=== PATIENT | female | born 1985 ===

== ENCOUNTER 2024-02-06 14:37 | Emergency (ER) | payer SELFPAY ==
[2024-02-06 16:46] LABS: APPEARANCE,URINE CLEAR (CLEAR); BILIRUBIN,URINE NEGATIVE (NEGATIVE); COLOR,URINE LIGHT YELLOW (YELLOW); GLUCOSE,URINE 100 (NEGATIVE); KETONES,URINE NEGATIVE (NEGATIVE); LEUKOCYTE ESTERASE,URINE TRACE (NEGATIVE); NITRITE,URINE NEGATIVE (NEGATIVE); OCCULT BLOOD,URINE MODERATE (NEGATIVE); PH,URINE 7.5 (5.0-9.0); PROTEIN,URINE >=300 (NEGATIVE); UROBILINOGEN,URINE 0.2 mg/dL (0.2-1.0)
[2024-02-06 16:49] LABS: AMPHETAMINES,URINE NEGATIVE (NEGATIVE); BARBITURATES,URINE NEGATIVE (NEGATIVE); BENZODIAZEPINE,URINE NEGATIVE (NEGATIVE); MDMA (ECSTASY), URINE NEGATIVE (NEGATIVE); METHADONE,URINE NEGATIVE (NEGATIVE); METHAMPHETAMINES,URINE NEGATIVE (NEGATIVE); OPIATES,URINE NEGATIVE (NEGATIVE); OXYCODONE,URINE POSITIVE (NEGATIVE); PHENCYCLIDINE,URINE NEGATIVE (NEGATIVE); TCA,URINE POSITIVE (NEGATIVE)
[2024-02-06 16:54] LABS: ALANINE AMINOTRANSFERASE,ALT 25 U/L (14-59); ALKALINE PHOSPHATASE 223 U/L (46-116); ANION GAP 13.7 mEq/L (7-13); ASPARTATE AMNIOTRANSFERASE,AST 35 U/L (15-37); BILIRUBIN TOTAL 0.4 mg/dL (0.2-1.0); BLOOD UREA NITROGEN,BUN 73 mg/dL (7-18); BUN/CREATININE RATIO 14.9 (No establ ref range); CALCIUM 8.7 mg/dL (8.5-10.1); CARBON DIOXIDE,CO2 23 mmol/L (21-32); CHLORIDE,CL 101 mmol/L (98-107); EST CRCL DRUG DOSING (CG) 14.72 mL/min; GLUCOSE RANDOM 172 mg/dL (70-99); MAGNESIUM 2.5 mg/dL (1.8-2.4); POTASSIUM,K 5.7 mmol/L (3.5-5.1); PROTEIN TOTAL,TP 7.8 g/dL (6.4-8.2); SODIUM,NA 132 mmol/L (136-145)
[2024-02-06 16:56] LABS: A/G RATIO 0.34; ESTIMATED GFR 11 mL/min (>=60)
[2024-02-06 16:57] LABS: ETHANOL BLOOD MEDICAL < 3 mg/dL (0)
[2024-02-06 17:02] LABS: WBC,URINE 0-5 /HPF (0-5/HPF)
[2024-02-06 17:03] LABS: BACTERIA,URINE FEW /HPF (0-FEW/HPF); EPITHELIAL CELLS,URINE RARE /HPF (NOT SEEN)
[2024-02-06 17:16] LABS: INR 1.1 (0.9-1.2); PROTHROMBIN TIME 10.9 SEC (9.0-12.0)
[2024-02-06] MEDS: Sodium Chloride 0.9% 1,000 ML IV ONE (19:04)
[2024-02-06] MEDS: Meropenem 500 MG SDV IVPUSH ONE (19:10)
== END 2024-02-06 20:16 ==
LOC: DL.ED 14:37
DX: R41.82 Altered mental status, unspecified (principal); N17.9 Acute kidney failure, unspecified; D64.9 Anemia, unspecified; N39.0 Urinary tract infection, site not specified; E87.1 Hypo-osmolality and hyponatremia; E87.5 Hyperkalemia; E86.9 Volume depletion, unspecified; Z91.018 Allergy to other foods; Z88.8 Allergy status to other drugs, medicaments and biological substances
CPT/HCPCS: 36415; 70450; 71045; 72125; 80053; 80305; 80307; 81001; 81025; 82140; 82947; 83735; 84484; 85025; 85610; 87086; 93005; 96361; 96374; 99285; J2185; J7030; 93010

== ENCOUNTER 2024-02-19 15:11 | Emergency (ER) | payer SELFPAY | END 2024-02-19 15:25 | LOC: DL.ED 15:11 | DX: E87.5 Hyperkalemia (principal); N18.6 End stage renal disease; Z99.2 Dependence on renal dialysis; J45.909 Unspecified asthma, uncomplicated; E11.9 Type 2 diabetes mellitus without complications; Z91.018 Allergy to other foods; Z88.8 Allergy status to other drugs, medicaments and biological substances | CPT/HCPCS: 99285 ==